=== PATIENT | male | born 1955 | race Caucasian/White ===

== ENCOUNTER 2017-04-20 04:27 | Observation (INO) | payer OTHER ==
--- NOTE | ~2017-04-20 | HP ---
History And Physical [id number] [place]. [address] NAME: KARAN FISHMAN : 59 STATUS : ADM Ping PAT#: [id number] AGE: 62 ADM/REG DATE : 04/20/17 MR#: [id number] REPORT SERV DATE: 04/20/17 DICTATED BY: ESPERANZA HERNANDEZ DATE: 04/20/17 REPORT STATUS : Draft TRANSCRIBED BY: MODL DATE: 04/20/17 DATE OF ADMISSION: 04/20/2017 Cardiology Admission H and P regarding atrial flutter and chest discomfort. HISTORY OF PRESENT ILLNESS: Mr. Fishman is a pleasant 62-year-old gentleman with a known history of atrial dysrhythmias. He reportedly underwent a radiofrequency ablation for atrial flutter at [facility] by Dr. Grande about two years ago. He has had a few intermittent breakthrough episodes of tachy palpitations which were fairly short lived, but last night, he had an event that awoke him from sleep and persisted. He has an juan c on his phone that allows him to check his heart rhythm and rate and it appeared that he was in a rapid heart rhythm and was taken to the emergency room. During that event, he complained of substernal chest discomfort. In the emergency room, he was found to be in an atrial dysrhythmia, what appears to be typical atrial flutter with a saw-tooth pattern in the inferior leads. The patient was administered amiodarone. At home, he had taken a single dose of Eliquis 5 mg which his physician had given him in case he did have a breakthrough event of sustained tachycardia. Once he was placed on the IV amiodarone, his chest discomfort improved, although his rate was essentially unchanged. The initial troponin was 0.94 and repeat troponin was 5.0. The patient is now chest pain free. He is tolerating the tachycardia without any significant problems. PAST MEDICAL HISTORY: 1. Notable for hypertension. 2. Hyperlipidemia. 3. Diabetes. 4. History of atrial flutter, status post radiofrequency ablation for atrial flutter at [facility] by Dr. Grande reportedly around 2013. 5. Also note, he has a history of diverticulosis and GI bleed, which he has attributed to NSAIDs. No recurrent GI bleed. HOME MEDICATIONS: Include aspirin 81 mg daily, Lipitor, lisinopril, metformin, and fish oil. FAMILY HISTORY: Noncontributory. Negative for premature coronary artery disease. SOCIAL HISTORY: Negative for tobacco or alcohol. REVIEW OF SYSTEMS: As noted above. All other systems reviewed and negative. PHYSICAL EXAMINATION: GENERAL: He is in no acute distress. VITAL SIGNS: His blood pressure is 150/86. His pulse is 120, in atrial flutter. Respirations are 16. HEENT: No icterus. Good dentition. NECK: Supple. No masses or thyromegaly. LUNGS: Breathing comfortably. No rales or wheezes. History And Physical [address] [place]. [address] NAME: KARAN FISHMAN : 59 STATUS : ADM Ping PAT#: [id number] AGE: 62 ADM/REG DATE : 04/20/17 MR#: [id number] REPORT SERV DATE: 04/20/17 DICTATED BY: ESPERANZA HERNANDEZ DATE: 04/20/17 REPORT STATUS : Draft TRANSCRIBED BY: SMILEY DATE: 04/20/17 COR: Normal S1, S2. No S3 or S4. No murmurs, clicks, rubs. No JVD. ABDOMEN: Soft, nondistended, nontender, no hepatosplenomegaly. EXTREMITIES: No clubbing, cyanosis or edema. Peripheral pulses 2+/=bilaterally. SKIN: Warm and dry. No visible lesions. MUSCULOSKELETAL: Chest wall without deformity, no obvious clavicular fractures. NEURO/PSYCH: Oriented X3. No anxiety or depression. IMAGING: EKG shows what appears to be typical atrial flutter; ventricular response 120 beats per minute. No evidence for acute ischemia or infarction. LABORATORY VALUES: As mentioned, troponin went from 0.9 to 5. White count and TSH are all within normal limits. IMPRESSION: The patient with recurrent atrial flutter, status post ablation about three years ago, reportedly for typical atrial flutter. The EKG is highly suggestive of a counter clockwise cavotricuspid isthmus atrial flutter likely due to a gap in the previous ablation line. It would be difficult to say that this is absolutely true. He would need further assessment by electrophysiology study which I have recommended. 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 On the other hand, he also has multiple coronary artery disease risk factors including hypertension, hyperlipidemia, and diabetes. He has evidence for a non-ST- elevation myocardial infarction with troponin increase. I believe cardiac catheterization would be prudent for him given the [id number] myocardial infarction. It is possible that the troponin bump is solely related to a supply-demand issue associated with his atrial flutter; however, he has multiple coronary artery disease risk factors, he did present with chest discomfort which he does not usually have when he has an episode of tachycardia. Along these lines, I have recommended that we start Lopressor. We will continue IV amiodarone which may be benefitting him from its antianginal effects. I will not give him any further Eliquis, but instead will place him on IV heparin. We will plan for cardiac catheterization this coming Friday. The patient agrees with proceeding in this manner. He is willing to stay here on the medications. He is willing to undergo cardiac catheterization and understands the inherent risks which include, but not exclusive to bleeding, infection, cardiac perforation, heart attack, stroke, and risk of . In terms of the atrial flutter, likely we will perform cardioversion either before or after the cardiac catheterization. SKIP/SMILEY Esperanza Hernandez M.D. / [id number] CC: Gonzalez Koch M.D.
[2017-04-20 03:12] LABS: BASOPHILS 0.3 %; BASOPHILS ABSOLUTE 0.03 10/3/uL (0.0-0.16); EOSINOPHILS 0.5 %; EOSINOPHILS ABSOLUTE 0.05 10/3/uL (0.0-0.53); ER CBC TAT 0 Hrs 03 Mins; HEMATOCRIT 45.2 % (40.0-51.0); HEMOGLOBIN 15.6 g/dL (13.6-17.8); IMMATURE GRANULOCYTES 0.2 %; IMMATURE GRANULOCYTES ABSOLUTE 0.02 10/3/uL (0.0-0.11); LYMPHOCYTES 18.4 %; LYMPHOCYTES ABSOLUTE 1.98 10/3/uL (0.67-4.30); MEAN CORPUS HGB CONC 34.5 g/dL (32.0-36.0); MEAN CORPUSCULAR HEMOGLOB 31.3 pg (26.0-34.0); MEAN CORPUSCULAR VOLUME 90.6 fL (80-100); MEAN PLATELET VOLUME 10.4 fL (9.2-13.0); MONOCYTES 6.8 %; MONOCYTES ABSOLUTE 0.73 10/3/uL (0.21-1.20); NEUTROPHILS 73.8 %; NEUTROPHILS ABSOLUTE 7.94 10/3/uL (2.02-8.40); PLATELET COUNT 204 10/3/uL (150-400); RBC DISTRIBUTION WIDTH 13.2 % (12.0-16.0); RED CELL COUNT 4.99 10/6/uL (4.7-6.1); WHITE BLOOD CELLS 10.8 10/3/uL (4.5-10.5)
[2017-04-20 03:13] LABS: MANUAL DIFF NO %
[2017-04-20 03:20] LABS: INTERNATIONAL NORMAL RATI 1.1 UNITS (-); PARTIAL THROMBO TIME 26.4 SEC (22.5-37.2); PROTIME (NOT ORD) 13.8 SEC (12.0-14.5)
[2017-04-20 03:35] LABS: ALBUMIN 3.9 G/DL (3.5-5.0); ALKALINE PHOSPHATASE 102 U/L (45-117); BUN (BLOOD UREA NITROGEN) 20 MG/DL (6-23); CALCIUM, SERUM 8.9 MG/DL (8.5-10.4); CHLORIDE, SERUM 109 MMOL/L (96-112); CO2 (CARBON DIOXIDE) 24 MMOL/L (24-34); CREATININE 0.82 MG/DL (0.70-1.30); GFR AFRICAN AMERICAN 111 ML/MIN (>=60); GFR NON AFRICAN AMERICAN 96 ML/MIN (>=60); GLUCOSE, SERUM 85 MG/DL (60-99); POTASSIUM, SERUM 3.9 MMOL/L (3.5-5.3); SGOT(AST) 72 U/L (5-40); SGPT(ALT) 81 U/L (5-65); SODIUM, SERUM 145 MMOL/L (135-148); TOTAL BILIRUBIN 0.4 MG/DL (0-1.2); TOTAL PROTEIN 6.9 G/DL (6.0-8.5)
[2017-04-20 03:36] LABS: CHEST PAIN PROFILE TAT 0 Hrs 27 Mins; DIRECT BILIRUBIN < 0.1 MG/DL (0.0-0.4); INDIRECT BILIRUBIN(NOT ORDER) 0.3 MG/DL (0.1-0.9); TROPONIN I 0.94 NG/ML (<0.05)
[~2017-04-20 04:27] MED LIST: ASAB PO; FISH OIL1200 MG PO; GLUCPH PO; LIPITOR40 PO; MULTIVITAMI1 PO; PRIN10 PO
[2017-04-22 10:04] LABS: BASOPHILS 0.2 %; BASOPHILS ABSOLUTE 0.02 10/3/uL (0.0-0.16); EOSINOPHILS 0.4 %; EOSINOPHILS ABSOLUTE 0.04 10/3/uL (0.0-0.53); HEMATOCRIT 43.1 % (40.0-51.0); HEMOGLOBIN 15.2 g/dL (13.6-17.8); IMMATURE GRANULOCYTES 0.1 %; IMMATURE GRANULOCYTES ABSOLUTE 0.01 10/3/uL (0.0-0.11); LYMPHOCYTES 22.5 %; MANUAL DIFF NO %; MEAN CORPUS HGB CONC 35.3 g/dL (32.0-36.0); MEAN CORPUSCULAR HEMOGLOB 31.7 pg (26.0-34.0); MEAN PLATELET VOLUME 10.5 fL (9.2-13.0); MONOCYTES 7.8 %; MONOCYTES ABSOLUTE 0.73 10/3/uL (0.21-1.20); NEUTROPHILS ABSOLUTE 6.45 10/3/uL (2.02-8.40); PLATELET COUNT 171 10/3/uL (150-400); RBC DISTRIBUTION WIDTH 13.2 % (12.0-16.0); RED CELL COUNT 4.79 10/6/uL (4.7-6.1); WHITE BLOOD CELLS 9.4 10/3/uL (4.5-10.5)
[2017-04-22 10:05] LABS: INTERNATIONAL NORMAL RATI 1.1 UNITS (-); PROTIME (NOT ORD) 14.5 SEC (12.0-14.5)
[2017-04-22 10:06] LABS: PARTIAL THROMBO TIME 78.4 SEC (22.5-37.2)
[2017-04-22 10:17] LABS: BUN (BLOOD UREA NITROGEN) 9 MG/DL (6-23); CALCIUM, SERUM 9.4 MG/DL (8.5-10.4); CHLORIDE, SERUM 109 MMOL/L (96-112); CHOL/HDL RATIO(NOT ORDER) 3.2 (0-5); CHOLESTEROL 131 MG/DL (< 200); CO2 (CARBON DIOXIDE) 27 MMOL/L (24-34); CREATININE 0.88 MG/DL (0.70-1.30); GFR AFRICAN AMERICAN 108 ML/MIN (>=60); GFR NON AFRICAN AMERICAN 93 ML/MIN (>=60); GLUCOSE, SERUM 94 MG/DL (60-99); HDL CHOLESTEROL 41 MG/DL (> 39); LDL CHOLESTEROL 78 MG/DL (< 130); NON-HDL CHOLESTEROL 90 MG/DL (< 160); SODIUM, SERUM 141 MMOL/L (135-148); TRIGLYCERIDE 62 MG/DL (< 150)
[2017-04-22] MEDS ORDERED: LOP25 PO (21:29)
[2017-04-22] MEDS ORDERED: ELIQUIS 5 MG TAB5 MG PO (21:41)
== END 2017-04-22 22:04 | disposition home or self-care (01) ==
LOC: ER 04:27 → CDU1 04:36 → 6NO 04-21 11:37
PROVIDERS: Internal Medicine Cardiovascular Disease; Specialist
DX: I21.4 Non-ST elevation (NSTEMI) myocardial infarction (principal); I48.92 Unspecified atrial flutter; I10 Essential (primary) hypertension; E78.5 Hyperlipidemia, unspecified; E11.9 Type 2 diabetes mellitus without complications; I20.0 Unstable angina; E78.00 Pure hypercholesterolemia, unspecified; I48.91 Unspecified atrial fibrillation
CPT/HCPCS: 71010; 80048; 80061; 80076; 82962; 83735; 83880; 84443; 84484; 85025; 85610; 85730; 93005; 93458; 96372; 96374; 96375; 96376; 99152; 99291; A9270-GY; C1769; C1887; C1894; G0378; J0153; J0282; J1742; J2250; J3010; J3473; Q9967